=== PATIENT | female | born 1960 | race Native Hawaiian/Other Pacific Islander ===

== ENCOUNTER 2022-08-15 12:19 | Outpatient (CLI) | payer BC ==
[~2022-08-15] VITALS: Ht 157.5 cm; Wt 77.1 kg
[2022-08-15 12:33] VITALS: BP 157/86; TEMP 97.5
[2022-08-15 14:23] VITALS: BP 161/77; TEMP 98.8
== END 2022-08-15 19:08 | disposition home or self-care (01) ==
LOC: INF 12:19
PROVIDERS: ATTEND Family Medicine
DX: E86.0 Dehydration (principal); G91.8 Other hydrocephalus
CPT/HCPCS: 96360

== ENCOUNTER 2022-10-31 12:20 | Outpatient (CLI) | payer BC | END 2022-10-31 19:18 | disposition home or self-care (01) | LOC: RAD 12:20 | PROVIDERS: ATTEND Nurse Practitioner Family | DX: K59.09 Other constipation (principal); M77.31 Calcaneal spur, right foot; M77.32 Calcaneal spur, left foot ==

== ENCOUNTER 2022-12-30 10:21 | Outpatient (CLI) | payer BC | END 2022-12-30 19:10 | disposition home or self-care (01) | LOC: MAMMO 10:21 | PROVIDERS: ATTEND Nurse Practitioner Family | DX: Z12.31 Encounter for screening mammogram for malignant neoplasm of breast (principal) ==